=== PATIENT | female | born 2000 | race Caucasian/White ===

== ENCOUNTER 2024-08-05 22:23 | Emergency (ER) | payer SELFPAY ==
[~2024-08-05] VITALS: Ht 167.6 cm; Wt 58.9 kg
[2024-08-05 22:31] VITALS: TEMP 36.6; O2SAT 98
[2024-08-05] MEDS: ONDANSETRON 4MG ODT PO ONE (23:26)
[2024-08-05 23:46] LABS: CHLORIDE 107 mEq/L (98-107); SODIUM 144 mEq/L (136-145)
[2024-08-05 23:47] LABS: CALCIUM 9.3 mg/dL (8.7-10.4); CARBON DIOXIDE 26 mEq/L (21-32)
[2024-08-05 23:52] LABS: CREATININE 0.7 mg/dL (0.6-1.0); GLUCOSE 124 mg/dL (70-105); UREA NITROGEN BLOOD 10 mg/dL (9-23)
[2024-08-05 23:53] LABS: ETHANOL BLOOD 271 mg/dL (<10)
[2024-08-06 00:13] VITALS: BP 95/52; PULSE 90; RESP 18; O2SAT 99
[2024-08-06 02:11] LABS: BASOPHILS % 0.4 % (0.0-2.0); EOSINOPHILS % 1.4 % (0.0-5.0); HEMATOCRIT. 41.5 % (36.0-48.0); LYMPHOCYTES % 41.6 % (20.0-50.0); MEAN CORPUSCULAR HGB CONC 33.7 g/dL (31.0-37.0); MEAN CORPUSCULAR VOLUME 94.9 fL (81.0-99.0); MEAN PLATELET VOLUME 9.4 fl (7.4-10.4); MONOCYTES % 4.3 % (2.0-8.0); NEUTROPHILS % 52.3 % (40.0-76.0); PLATELET 245 x1000/uL (130-400); RED BLOOD CELL COUNT 4.37 mill/uL (4.2-5.4); RED CELL DISTRIBUTION WIDTH 12.9 % (11.6-14.6); WHITE BLOOD COUNT 8.4 x1000/uL (4.5-11.0)
== END 2024-08-06 00:14 | disposition home or self-care (01) ==
LOC: ER 22:23
DX: F10.129 Alcohol abuse with intoxication, unspecified (principal); Y90.9 Presence of alcohol in blood, level not specified
CPT/HCPCS: 80048; 80320; 85025; 36415; 99283; Q0162; Z7610 ×2; G0480